=== PATIENT | female | born 1975 | race Caucasian/White ===

== ENCOUNTER → 2023-12-18 14:29 | Outpatient (REF) | payer OTHER, SELFPAY ==
[2023-12-18 15:11] LABS: INR 2.19; PT 24.2 Sec (11.4-14.6)
== END ==
LOC: REG 14:29
PROVIDERS: ATTENDING PHYSICIAN Internal Medicine Hematology & Oncology; PRIMARYCARE PHYSICIAN Family Medicine
DX: D68.61 Antiphospholipid syndrome (principal)
CPT/HCPCS: 36415; 85610

== ENCOUNTER → 2023-12-29 14:12 | Outpatient (REF) | payer OTHER, SELFPAY ==
[2023-12-29 14:50] LABS: INR 2.31; PT 25.2 Sec (11.4-14.6)
== END ==
LOC: REG 14:12
PROVIDERS: ATTENDING PHYSICIAN Internal Medicine Hematology & Oncology; FAMILY PHYSICIAN Family Medicine
DX: D68.61 Antiphospholipid syndrome (principal)
CPT/HCPCS: 36415; 85610

== ENCOUNTER → 2024-12-09 15:36 | Outpatient (REF) | payer OTHER, SELFPAY ==
[2024-12-09 16:14] LABS: INR 1.89; PT 21.8 Sec (11.4-14.6)
== END ==
LOC: REG 15:36
PROVIDERS: ATTENDING PHYSICIAN Internal Medicine Hematology & Oncology
DX: D68.61 Antiphospholipid syndrome (principal)
CPT/HCPCS: 36415; 85610